=== PATIENT | female | born 2000 | race Hispanic/Latino ===

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

== ENCOUNTER 2022-08-22 23:23 | Emergency (ER) | payer BC ==
[~2022-08-22] VITALS: Ht 157.5 cm; Wt 99.3 kg
[2022-08-23] MEDS ORDERED: KETOROLAC 30MG VIAL (30MG/ML) IVP ONE
[2022-08-23] MEDS ORDERED: 0.9%NACL 1000ML 1,000 ML IV ONE
[2022-08-23] MEDS ORDERED: ONDANSETRON 4MG INJ IVP ONE
[2022-08-23 00:09] LABS: BASOPHILS % (AUTO) 0.3 % (0.0-5.0); EOSINOPHILS % (AUTO) 0.5 % (0.0-8.0); HEMATOCRIT 43.3 % (36-48); LYMPHOCYTES % (AUTO) 12.2 % (21.0-51.0); MEAN CORPUSCULAR HEMOGLOBIN 27.5 pg (27.0-33.0); MEAN CORPUSCULAR HGB CONC 34.2 g/dL (32.0-36.0); MEAN CORPUSCULAR VOLUME 80.5 fL (80-100); MONOCYTES % (AUTO) 5.9 % (3.0-13.0); NEUTROPHILS % (AUTO) 80.7 % (40.0-77.0); PLATELET COUNT (AUTO) 178 K/uL (130-400); RED BLOOD CELL COUNT(AUTO) 5.38 MIL/uL (4.00-5.50); RED CELL DISTRIBUTION WIDTH 12.1 % (11.0-15.5); WHITE BLOOD COUNT (AUTO) 10.1 K/uL (4.8-10.8)
[2022-08-23 00:16] LABS: APPEARANCE,URINE CLEAR (CLEAR); BILIRUBIN,URINE NEGATIVE (NEGATIVE); COLOR,URINE YELLOW (YELLOW); GLUCOSE, URINE (UA) NEGATIVE (NEGATIVE); KETONES,URINE NEGATIVE (NEGATIVE); LEUKOCYTE ESTERASE ,URINE NEGATIVE Leu/uL (NEGATIVE); NITRATE,URINE NEGATIVE (NEGATIVE); OCCULT BLOOD,URINE NEGATIVE (NEGATIVE); PH,URINE 5.5 (5.0-8.0); PROTEIN,URINE NEGATIVE (NEGATIVE); UROBILINOGEN,URINE 0.2 mg/dL (0.2-1.0)
[2022-08-23 00:17] LABS: CREATININE 0.8 mg/dL (0.5-1.5); POTASSIUM 3.6 mmol/L (3.5-5.1)
[2022-08-23 00:18] LABS: HCG,QUALITATIVE URINE NEGATIVE (NEGATIVE)
[2022-08-23 00:22] LABS: ALBUMIN 3.5 g/dL (3.5-5.0); TOTAL PROTEIN, SERUM 7.9 g/dL (6.0-8.3)
[2022-08-23] MEDS ORDERED: PANT40TA PO (00:54)
[2022-08-23] MEDS ORDERED: ONDA4TAB10 PO (00:54)
[2022-08-23 01:00] VITALS: BP 105/50
== END 2022-08-23 01:15 | disposition home or self-care (01) ==
LOC: EDH 23:23
DX: R10.11 Right upper quadrant pain (principal); R74.8 Abnormal levels of other serum enzymes
CPT/HCPCS: 99284; 96374; 76705; 96361; 96375; 80053; 83690; 85025; 81003; 81025; 36415; J7030; J2405; J1885

== ENCOUNTER 2023-08-28 17:37 | Emergency (ER) | payer BC, OTHER ==
[~2023-08-28] VITALS: Ht 157.5 cm; Wt 105.7 kg
[~2023-08-28 17:37] MED LIST: ONDA4TAB10 PO; PANT40TA PO
[2023-08-28 18:04] LABS: APPEARANCE,URINE CLEAR (CLEAR); BILIRUBIN,URINE NEGATIVE (NEGATIVE); GLUCOSE, URINE (UA) NEGATIVE (NEGATIVE); KETONES,URINE NEGATIVE (NEGATIVE); LEUKOCYTE ESTERASE ,URINE NEGATIVE Leu/uL (NEGATIVE); NITRATE,URINE NEGATIVE (NEGATIVE); OCCULT BLOOD,URINE NEGATIVE (NEGATIVE); PROTEIN,URINE NEGATIVE (NEGATIVE); UROBILINOGEN,URINE 0.2 mg/dL (0.2-1.0)
[2023-08-28 18:06] LABS: HCG,QUALITATIVE URINE NEGATIVE (NEGATIVE)
[2023-08-28 18:07] LABS: ADD UA MICROSCOPIC NO; COLOR,URINE YELLOW (YELLOW)
[2023-08-28 18:07] LABS: BASOPHILS # (AUTO) 0.05 K/uL (0.00-0.20); BASOPHILS % (AUTO) 0.5 % (0.0-5.0); EOSINOPHILS % (AUTO) 0.9 % (0.0-8.0); IMMATURE GRANULOCYTE ABSOLUTE 0.04 K/uL (0-1); LYMPHOCYTES % (AUTO) 28.3 % (21.0-51.0); MEAN CORPUSCULAR HEMOGLOBIN 27.7 pg (27.0-33.0); MEAN CORPUSCULAR HGB CONC 33.5 g/dL (32.0-36.0); MEAN CORPUSCULAR VOLUME 82.7 fL (79-99); MONOCYTES # (AUTO) 0.6 K/uL (0.1-1.0); NEUTROPHILS # (AUTO) 6.7 K/uL (1.8-7.7); NEUTROPHILS % (AUTO) 63.9 % (40.0-77.0); PLATELET COUNT (AUTO) 228 K/uL (130-400); RED CELL DISTRIBUTION WIDTH 12.7 % (11.0-15.5); WHITE BLOOD COUNT (AUTO) 10.5 K/uL (4.8-10.8)
[2023-08-28 18:15] LABS: CREATININE 0.7 mg/dL (0.5-1.5); POTASSIUM 3.8 mmol/L (3.5-5.1)
[2023-08-28 18:20] LABS: ALBUMIN 3.5 g/dL (3.5-5.0); BILIRUBIN,TOTAL 0.2 mg/dL (0.2-1.0)
[2023-08-28] MEDS ORDERED: PANT40TA PO (20:27)
[2023-08-28] MEDS ORDERED: DICY20TA2 PO (20:27)
[2023-08-28 20:30] VITALS: BP 120/80; PULSE 85; RESP 17; O2SAT 94
== END 2023-08-28 20:35 | disposition home or self-care (01) ==
LOC: EDH 17:37
DX: R10.11 Right upper quadrant pain (principal); Z79.899 Other long term (current) drug therapy
CPT/HCPCS: 36415; 76705; 80053; 81003; 81025; 83690; 85025

== ENCOUNTER 2024-09-28 20:22 | Emergency (ER) | payer OTHER, BC ==
[~2024-09-28] VITALS: Ht 157.5 cm; Wt 99.8 kg
[~2024-09-28 20:22] MED LIST changes: +DICY20TA2 PO; +ONDA-243 PO; -ONDA4TAB10 PO
--- NOTE | 2024-09-28 20:25 | NUR ---
UA CUP PROVIDED
[2024-09-28] MEDS: methoCARBamol 500 MG TABLET PO STA (21:11)
[2024-09-28] MEDS: acetaMINOPHEN 500 MG TABLET PO STA (21:12)
--- NOTE | 2024-09-28 22:05 | HMCIMG ---
LEFT SHOULDER RADIOGRAPHS - 2-3 VIEWS INDICATION: Pain COMPARISON: None FINDINGS: No evidence for acute fracture or dislocation. Acromioclavicular and glenohumeral alignments are well maintained. Visible portions of the left clavicle are intact. IMPRESSION: No evidence for fracture or dislocation.
--- NOTE | 2024-09-28 22:05 | HMCIMG ---
PORTABLE CHEST RADIOGRAPH INDICATION: trauma COMPARISON: None FINDINGS: Heart size is normal. The pulmonary vascularity and maryjo appear normal. No abnormal pulmonary parenchymal opacity or consolidation identified. No significant pleural effusion noted. No pneumothorax detected. IMPRESSION: No radiographic evidence for any acute cardiopulmonary process.
[2024-09-28] MEDS ORDERED: METH-811 PO (22:20)
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
[2024-09-28 22:39] VITALS: BP 131/65; PULSE 85; RESP 20; TEMP 98.1; O2SAT 98
== END 2024-09-28 22:42 | disposition home or self-care (01) ==
LOC: EDH 20:22
DX: S40.012A Contusion of left shoulder, initial encounter (principal); Z79.899 Other long term (current) drug therapy; Z88.6 Allergy status to analgesic agent; V89.2XXA Person injured in unspecified motor-vehicle accident, traffic, initial encounter; Y93.89 Activity, other specified; Y92.488 Other paved roadways as the place of occurrence of the external cause; Y99.8 Other external cause status
CPT/HCPCS: 71045; 73020; 81025; 99284